=== PATIENT | female | born 1950 | race Caucasian/White ===

== ENCOUNTER 2022-01-26 11:26 | Inpatient (IN) ==
[2022-01-26] MEDS ORDERED: Famotidine 20 MG TABLET PO PRN (18:35)
[2022-01-26] MEDS ORDERED: Bismuth Subsalicylate 120 ML ORAL SUSPENSION PO PRN (18:35)
[2022-01-26] MEDS ORDERED: *HR* Dextrose 50 % in Water (Syg) 50 ML SYRINGE IVP PRN (18:44)
[2022-01-26] MEDS ORDERED: D5% in Water 1,000 ML IVC PRN (18:44)
[2022-01-26] MEDS ORDERED: Dextrose Gel 15 GM/37.5 ML TUBE PO PRN ×2 (18:44)
[2022-01-26] MEDS ORDERED: (Diclofenac Sodium [Voltaren] 100 GM Gel..Gram.) TP PRN (21:00)
[2022-01-26] MEDS ORDERED: NON-FORMULARY MEDICATION 1 EACH EACH (Insulin Detemir [Levemir Flextouch] 100 UNIT/ML Insu SQ SCH (21:00)
[2022-01-26] MEDS: Gabapentin 300 MG CAPSULE PO SCH (21:08)
[2022-01-26] MEDS: Lactobacillus 1 EACH CAP.SPRINK PO SCH (21:08)
[2022-01-26] MEDS: rOPINIRole 1 MG TABLET PO SCH (21:09)
[2022-01-26] MEDS: Insulin LISPRO 300 UNITS/3 ML VIAL SUBQ SCH (21:09)
[2022-01-26] MEDS: Insulin DETEMIR 100 UNIT/ML per UNIT SUBQ SCH (22:07)
[2022-01-27 07:32] LABS: BUN/Creatinine Ratio 27 (6-26); Basophils # 0.1 K/mcL (0.0-0.2); Basophils % 0.8 %; Blood Urea Nitrogen 15 mg/dL (8-23); Calcium 9.3 mg/dL (8.6-10.3); Carbon Dioxide 25 mEq/L (23-29); Chloride 101 mEq/L (98-107); Eosinophils % 0.1 %; Glucose 95 mg/dL (70-105); Hematocrit 33.8 % (35.3-44.9); Hemoglobin 10.8 g/dL (11.5-15.4); Immature Granulocytes % 0.4 % (0-4); Lymphocytes # 2.7 K/mcL (0.6-4.6); Lymphocytes % 23.7 %; Mean Corpuscular Volume 81.4 fL (83.0-100.0); Monocytes # 0.9 K/mcL (0.0-1.3); Monocytes % 8.1 %; Neutrophils # 7.6 K/mcL (1.6-8.9); Osmolality,Calculated 281 (280-300); Platelet Count 434 K/mcL (140-400); Potassium 3.7 mEq/L (3.5-5.1); Red Blood Count 4.15 M/mcL (3.82-4.97); Red Cell Distribution Width 16.9 % (11.5-14.5); Segmented Neutrophils % 66.9 %; Sodium 135 mEq/L (136-145); White Blood Count 11.3 K/mcL (4.3-11.1)
[2022-01-27] MEDS: Insulin LISPRO 300 UNITS/3 ML VIAL SUBQ SCH ×4 (08:30→19:59)
[2022-01-27] MEDS: Aspirin Enteric Coated 81 MG Tablet PO SCH (09:52)
[2022-01-27] MEDS: FLUoxetine 20 MG CAPSULE PO SCH (09:52)
[2022-01-27] MEDS: lisinopriL 20 MG TABLET PO SCH (09:52)
[2022-01-27] MEDS: BuPROPion XL (24 HR) 150 MG TABLET PO SCH (09:52)
[2022-01-27] MEDS: amLODIPine 5 MG TABLET PO SCH (09:52)
[2022-01-27] MEDS: *HR* SitaGLIPtin 25 MG TABLET PO SCH (09:52)
[2022-01-27] MEDS: Gabapentin 300 MG CAPSULE PO SCH ×3 (09:52→22:05)
[2022-01-27] MEDS: Lactobacillus 1 EACH CAP.SPRINK PO SCH ×2 (09:52→22:05)
[2022-01-27] MEDS: *HR* HYDROcodone/Acet 10/325 mg TABLET PO PRN (10:07)
[2022-01-27] MEDS ORDERED: 0.9 % Sodium Chloride 500 ML IVC ONE (21:02)
[2022-01-27] MEDS: Insulin DETEMIR 100 UNIT/ML per UNIT SUBQ SCH (22:05)
[2022-01-27] MEDS: rOPINIRole 1 MG TABLET PO SCH (22:05)
[2022-01-28] MEDS ORDERED: 0.9 % Sodium Chloride 500 ML IV ONE (01:33)
[2022-01-28] MEDS: *HR* Enoxaparin 40 MG/0.4 ML SYRINGE SQ SCH (05:42)
[2022-01-28] MEDS: Insulin LISPRO 300 UNITS/3 ML VIAL SUBQ SCH ×4 (07:23→21:32)
[2022-01-28] MEDS: Aspirin Enteric Coated 81 MG Tablet PO SCH (09:40)
[2022-01-28] MEDS: Lactobacillus 1 EACH CAP.SPRINK PO SCH ×2 (09:40→22:45)
[2022-01-28] MEDS: *HR* SitaGLIPtin 25 MG TABLET PO SCH (09:40)
[2022-01-28] MEDS: BuPROPion XL (24 HR) 150 MG TABLET PO SCH (09:40)
[2022-01-28] MEDS: lisinopriL 20 MG TABLET PO SCH (09:41)
[2022-01-28] MEDS: FLUoxetine 20 MG CAPSULE PO SCH (09:41)
[2022-01-28] MEDS: Gabapentin 300 MG CAPSULE PO SCH ×3 (09:41→22:39)
[2022-01-28] MEDS: amLODIPine 5 MG TABLET PO SCH (09:41)
[2022-01-28] MEDS: Acetaminophen 325 MG TABLET PO PRN (13:25)
[2022-01-28] MEDS ORDERED: Ringers Solution, Lactated 1,000 ML IVC SCH (22:00)
[2022-01-28 22:16] LABS: Basophils # 0.1 K/mcL (0.0-0.2); Basophils % 0.5 %; Eosinophils % 0.3 %; Hematocrit 30.6 % (35.3-44.9); Hemoglobin 9.5 g/dL (11.5-15.4); Immature Granulocytes % 0.3 % (0-4); Lymphocytes # 3.4 K/mcL (0.6-4.6); Lymphocytes % 26.8 %; Mean Corpuscular Volume 83.8 fL (83.0-100.0); Mean Platelet Volume 9.8 fL (9.4-12.4); Monocytes # 0.9 K/mcL (0.0-1.3); Monocytes % 6.7 %; Neutrophils # 8.4 K/mcL (1.6-8.9); Platelet Count 403 K/mcL (140-400); Red Blood Count 3.65 M/mcL (3.82-4.97); Red Cell Distribution Width 17.5 % (11.5-14.5); Segmented Neutrophils % 65.4 %; White Blood Count 12.8 K/mcL (4.3-11.1)
[2022-01-28 22:25] LABS: Albumin 2.9 g/dL (3.5-5.7); Bilirubin,Total 0.2 mg/dL (0.3-1.0); Calcium 8.5 mg/dL (8.6-10.3); Potassium 4.1 mEq/L (3.5-5.1); Total Protein 5.9 g/dL (6.4-8.9)
[2022-01-28] MEDS: rOPINIRole 1 MG TABLET PO SCH (22:45)
[2022-01-29] MEDS: *HR* Enoxaparin 40 MG/0.4 ML SYRINGE SQ SCH (06:27)
[2022-01-29] MEDS: Insulin LISPRO 300 UNITS/3 ML VIAL SUBQ SCH ×4 (07:45→20:54)
[2022-01-29] MEDS: FLUoxetine 20 MG CAPSULE PO SCH (09:51)
[2022-01-29] MEDS: Aspirin Enteric Coated 81 MG Tablet PO SCH (09:51)
[2022-01-29] MEDS: BuPROPion XL (24 HR) 150 MG TABLET PO SCH (09:51)
[2022-01-29] MEDS: Gabapentin 300 MG CAPSULE PO SCH ×3 (09:51→20:52)
[2022-01-29] MEDS: *HR* SitaGLIPtin 25 MG TABLET PO SCH (09:51)
[2022-01-29] MEDS: Lactobacillus 1 EACH CAP.SPRINK PO SCH ×2 (09:52→20:52)
[2022-01-29] MEDS: 0.9 % Sodium Chloride 1,000 ML IVC SCH (13:09)
[2022-01-29 16:00] LABS: Bilirubin,Urine Negative (Negative); Blood,Urine Negative (Negative); Clarity,Urine Slightly Cloudy (Clear); Color,Urine Yellow (Yellow); Glucose,Urine (UA) Normal (Normal); Ketones,Urine Negative (Negative); Leukocyte Esterase,Urine Moderate (Negative); Nitrite,Urine Negative (Negative); PH,Urine 5.5 pH Units (5.0-8.0); Protein,Urine Negative (Neg-Trace); Specific Gravity,Urine 1.025 (1.010-1.025); Urobilinogen,Urine Normal (Normal)
[2022-01-29 16:27] LABS: Budding Yeast,Urine Moderate per hpf (None Seen); Squamous Epithelial Cell,Urine Few per hpf (None-Few); Waxy Casts,Urine Few per lpf (None Seen)
[2022-01-29 16:28] LABS: Bacteria,Urine Moderate per hpf (None-Few)
[2022-01-29] MEDS: Acetaminophen 325 MG TABLET PO PRN (20:52)
[2022-01-29] MEDS: rOPINIRole 1 MG TABLET PO SCH (20:53)
[2022-01-29] MEDS: Budesonide/Formoterol 160/4.5 1 PUFF INH IH SCH (20:58)
[2022-01-30] MEDS: Insulin DETEMIR 100 UNIT/ML X5UNITS SUBQ SCH ×2 (00:45→21:27)
[2022-01-30] MEDS: *HR* Enoxaparin 40 MG/0.4 ML SYRINGE SQ SCH (05:20)
[2022-01-30] MEDS: 0.9 % Sodium Chloride 1,000 ML IVC SCH (07:00)
[2022-01-30] MEDS: Insulin LISPRO 300 UNITS/3 ML VIAL SUBQ SCH ×4 (07:27→21:00)
[2022-01-30] MEDS: Budesonide/Formoterol 160/4.5 1 PUFF INH IH SCH ×2 (09:33→21:18)
[2022-01-30] MEDS: BuPROPion XL (24 HR) 150 MG TABLET PO SCH (10:36)
[2022-01-30] MEDS: *HR* SitaGLIPtin 25 MG TABLET PO SCH (10:37)
[2022-01-30] MEDS: FLUoxetine 20 MG CAPSULE PO SCH (10:37)
[2022-01-30] MEDS: Aspirin Enteric Coated 81 MG Tablet PO SCH (10:37)
[2022-01-30] MEDS: Lactobacillus 1 EACH CAP.SPRINK PO SCH ×2 (10:37→21:27)
[2022-01-30] MEDS: Gabapentin 300 MG CAPSULE PO SCH ×3 (10:40→21:27)
[2022-01-30 10:42] LABS: Basophils # 0.1 K/mcL (0.0-0.2); Basophils % 0.5 %; Eosinophils % 0.2 %; Hemoglobin 9.1 g/dL (11.5-15.4); Immature Granulocytes % 0.3 % (0-4); Lymphocytes # 1.5 K/mcL (0.6-4.6); Lymphocytes % 14.4 %; Mean Corpuscular HGB Conc 31.4 g/dL (31.6-35.5); Mean Corpuscular Hemoglobin 26.3 pg (28.0-33.3); Mean Corpuscular Volume 83.8 fL (83.0-100.0); Monocytes # 0.5 K/mcL (0.0-1.3); Monocytes % 4.7 %; Neutrophils # 8.5 K/mcL (1.6-8.9); Platelet Count 409 K/mcL (140-400); Red Blood Count 3.46 M/mcL (3.82-4.97); Red Cell Distribution Width 17.6 % (11.5-14.5); Segmented Neutrophils % 79.9 %; White Blood Count 10.7 K/mcL (4.3-11.1)
[2022-01-30 10:57] LABS: BUN/Creatinine Ratio 27 (6-26); Blood Urea Nitrogen 18 mg/dL (8-23); Calcium 8.7 mg/dL (8.6-10.3); Carbon Dioxide 25 mEq/L (23-29); Chloride 106 mEq/L (98-107); Glucose 151 mg/dL (70-105); Osmolality,Calculated 289 (280-300); Potassium 4.5 mEq/L (3.5-5.1); Sodium 137 mEq/L (136-145)
[2022-01-30] MEDS: Acetaminophen 325 MG TABLET PO PRN (21:26)
[2022-01-30] MEDS: rOPINIRole 1 MG TABLET PO SCH (21:26)
[2022-01-31] MEDS: *HR* Enoxaparin 40 MG/0.4 ML SYRINGE SQ SCH (06:09)
[2022-01-31] MEDS: Insulin LISPRO 300 UNITS/3 ML VIAL SUBQ SCH ×4 (07:11→21:45)
[2022-01-31] MEDS: Budesonide/Formoterol 160/4.5 1 PUFF INH IH SCH ×2 (09:13→20:06)
[2022-01-31] MEDS: Lactobacillus 1 EACH CAP.SPRINK PO SCH ×2 (10:19→21:45)
[2022-01-31] MEDS: *HR* SitaGLIPtin 25 MG TABLET PO SCH (10:19)
[2022-01-31] MEDS: Aspirin Enteric Coated 81 MG Tablet PO SCH (10:19)
[2022-01-31] MEDS: Gabapentin 300 MG CAPSULE PO SCH ×3 (10:19→21:45)
[2022-01-31] MEDS: FLUoxetine 20 MG CAPSULE PO SCH (10:20)
[2022-01-31] MEDS: BuPROPion XL (24 HR) 150 MG TABLET PO SCH (10:20)
[2022-01-31] MEDS: Insulin DETEMIR 100 UNIT/ML X5UNITS SUBQ SCH (21:45)
[2022-01-31] MEDS: rOPINIRole 1 MG TABLET PO SCH (21:45)
[2022-02-01] MEDS: *HR* Enoxaparin 40 MG/0.4 ML SYRINGE SQ SCH (06:00)
[2022-02-01] MEDS: Insulin LISPRO 300 UNITS/3 ML VIAL SUBQ SCH ×4 (07:43→20:53)
[2022-02-01] MEDS: BuPROPion XL (24 HR) 150 MG TABLET PO SCH (09:08)
[2022-02-01] MEDS: *HR* SitaGLIPtin 25 MG TABLET PO SCH (09:08)
[2022-02-01] MEDS: Aspirin Enteric Coated 81 MG Tablet PO SCH (09:08)
[2022-02-01] MEDS: FLUoxetine 20 MG CAPSULE PO SCH (09:08)
[2022-02-01] MEDS: Lactobacillus 1 EACH CAP.SPRINK PO SCH ×2 (09:09→20:53)
[2022-02-01] MEDS: Gabapentin 300 MG CAPSULE PO SCH ×3 (09:09→20:53)
[2022-02-01] MEDS: Budesonide/Formoterol 160/4.5 1 PUFF INH IH SCH ×2 (11:34→21:29)
[2022-02-01] MEDS: rOPINIRole 1 MG TABLET PO SCH (20:53)
[2022-02-01] MEDS: Insulin DETEMIR 100 UNIT/ML X5UNITS SUBQ SCH (20:53)
[2022-02-02] MEDS: *HR* Enoxaparin 40 MG/0.4 ML SYRINGE SQ SCH (05:42)
[2022-02-02] MEDS: Aspirin Enteric Coated 81 MG Tablet PO SCH (08:42)
[2022-02-02] MEDS: BuPROPion XL (24 HR) 150 MG TABLET PO SCH (08:42)
[2022-02-02] MEDS: *HR* SitaGLIPtin 25 MG TABLET PO SCH (08:42)
[2022-02-02] MEDS: FLUoxetine 20 MG CAPSULE PO SCH (08:42)
[2022-02-02] MEDS: Insulin LISPRO 300 UNITS/3 ML VIAL SUBQ SCH ×4 (08:42→20:34)
[2022-02-02] MEDS: Gabapentin 300 MG CAPSULE PO SCH ×3 (08:42→20:35)
[2022-02-02] MEDS: Lactobacillus 1 EACH CAP.SPRINK PO SCH ×2 (08:42→20:34)
[2022-02-02] MEDS: Budesonide/Formoterol 160/4.5 1 PUFF INH IH SCH ×2 (10:45→22:15)
[2022-02-02] MEDS: rOPINIRole 1 MG TABLET PO SCH (20:34)
[2022-02-02] MEDS: Insulin DETEMIR 100 UNIT/ML X5UNITS SUBQ SCH (20:34)
[2022-02-03] MEDS: *HR* Enoxaparin 40 MG/0.4 ML SYRINGE SQ SCH (05:34)
[2022-02-03 06:22] LABS: Basophils # 0.1 K/mcL (0.0-0.2); Basophils % 0.6 %; Eosinophils % 0.1 %; Hematocrit 29.5 % (35.3-44.9); Hemoglobin 9.1 g/dL (11.5-15.4); Immature Granulocytes % 0.2 % (0-4); Lymphocytes # 2.4 K/mcL (0.6-4.6); Lymphocytes % 23.2 %; Mean Corpuscular HGB Conc 30.8 g/dL (31.6-35.5); Mean Corpuscular Volume 84.3 fL (83.0-100.0); Mean Platelet Volume 10.1 fL (9.4-12.4); Monocytes # 0.6 K/mcL (0.0-1.3); Monocytes % 6.2 %; Platelet Count 477 K/mcL (140-400); Red Cell Distribution Width 18.3 % (11.5-14.5); Segmented Neutrophils % 69.7 %; White Blood Count 10.1 K/mcL (4.3-11.1)
[2022-02-03 06:50] LABS: BUN/Creatinine Ratio 23 (6-26); Blood Urea Nitrogen 13 mg/dL (8-23); Carbon Dioxide 28 mEq/L (23-29); Chloride 102 mEq/L (98-107); Glucose 110 mg/dL (70-105); Magnesium 1.1 mg/dL (1.6-2.6); Osmolality,Calculated 287 (280-300); Potassium 4.1 mEq/L (3.5-5.1); Sodium 138 mEq/L (136-145)
[2022-02-03] MEDS: Lactobacillus 1 EACH CAP.SPRINK PO SCH ×2 (09:35→20:38)
[2022-02-03] MEDS: Aspirin Enteric Coated 81 MG Tablet PO SCH (09:35)
[2022-02-03] MEDS: FLUoxetine 20 MG CAPSULE PO SCH (09:35)
[2022-02-03] MEDS: BuPROPion XL (24 HR) 150 MG TABLET PO SCH (09:35)
[2022-02-03] MEDS: Gabapentin 300 MG CAPSULE PO SCH ×3 (09:36→20:39)
[2022-02-03] MEDS: Insulin LISPRO 300 UNITS/3 ML VIAL SUBQ SCH ×4 (09:36→20:39)
[2022-02-03] MEDS: *HR* SitaGLIPtin 25 MG TABLET PO SCH (09:36)
[2022-02-03] MEDS: Budesonide/Formoterol 160/4.5 1 PUFF INH IH SCH ×2 (10:00→21:31)
[2022-02-03] MEDS: Insulin DETEMIR 100 UNIT/ML X5UNITS SUBQ SCH (20:39)
[2022-02-03] MEDS: rOPINIRole 1 MG TABLET PO SCH (20:39)
[2022-02-04] MEDS: *HR* Enoxaparin 40 MG/0.4 ML SYRINGE SQ SCH (04:37)
[2022-02-04] MEDS: Insulin LISPRO 300 UNITS/3 ML VIAL SUBQ SCH ×4 (08:08→20:47)
[2022-02-04] MEDS: BuPROPion XL (24 HR) 150 MG TABLET PO SCH (08:23)
[2022-02-04] MEDS: Lactobacillus 1 EACH CAP.SPRINK PO SCH ×2 (08:23→20:47)
[2022-02-04] MEDS: *HR* SitaGLIPtin 25 MG TABLET PO SCH (08:23)
[2022-02-04] MEDS: Gabapentin 300 MG CAPSULE PO SCH ×3 (08:23→20:47)
[2022-02-04] MEDS: Aspirin Enteric Coated 81 MG Tablet PO SCH (08:23)
[2022-02-04] MEDS: FLUoxetine 20 MG CAPSULE PO SCH (08:23)
[2022-02-04] MEDS: Budesonide/Formoterol 160/4.5 1 PUFF INH IH SCH ×2 (09:16→21:03)
[2022-02-04] MEDS: Ondansetron ODT 4 MG TAB.RAPDIS SL PRN (17:51)
[2022-02-04] MEDS: rOPINIRole 1 MG TABLET PO SCH (20:47)
[2022-02-04] MEDS: Insulin DETEMIR 100 UNIT/ML X5UNITS SUBQ SCH (20:47)
[2022-02-05] MEDS: *HR* Enoxaparin 40 MG/0.4 ML SYRINGE SQ SCH (05:07)
[2022-02-05] MEDS: *HR* SitaGLIPtin 25 MG TABLET PO SCH (09:01)
[2022-02-05] MEDS: FLUoxetine 20 MG CAPSULE PO SCH (09:01)
[2022-02-05] MEDS: Gabapentin 300 MG CAPSULE PO SCH ×3 (09:01→20:38)
[2022-02-05] MEDS: Aspirin Enteric Coated 81 MG Tablet PO SCH (09:01)
[2022-02-05] MEDS: BuPROPion XL (24 HR) 150 MG TABLET PO SCH (09:01)
[2022-02-05] MEDS: Lactobacillus 1 EACH CAP.SPRINK PO SCH ×2 (09:01→20:38)
[2022-02-05] MEDS: Insulin LISPRO 300 UNITS/3 ML VIAL SUBQ SCH ×4 (09:01→20:41)
[2022-02-05] MEDS: Budesonide/Formoterol 160/4.5 1 PUFF INH IH SCH ×2 (09:09→20:48)
[2022-02-05] MEDS: rOPINIRole 1 MG TABLET PO SCH (20:38)
[2022-02-05] MEDS: Insulin DETEMIR 100 UNIT/ML X5UNITS SUBQ SCH (20:39)
[2022-02-06] MEDS: *HR* Enoxaparin 40 MG/0.4 ML SYRINGE SQ SCH (06:51)
[2022-02-06] MEDS: Insulin LISPRO 300 UNITS/3 ML VIAL SUBQ SCH ×4 (08:41→20:22)
[2022-02-06] MEDS: Lactobacillus 1 EACH CAP.SPRINK PO SCH ×2 (08:45→20:22)
[2022-02-06] MEDS: BuPROPion XL (24 HR) 150 MG TABLET PO SCH (08:45)
[2022-02-06] MEDS: Aspirin Enteric Coated 81 MG Tablet PO SCH (08:45)
[2022-02-06] MEDS: Gabapentin 300 MG CAPSULE PO SCH ×3 (08:45→20:22)
[2022-02-06] MEDS: FLUoxetine 20 MG CAPSULE PO SCH (08:45)
[2022-02-06] MEDS: *HR* SitaGLIPtin 25 MG TABLET PO SCH (08:45)
[2022-02-06] MEDS: Budesonide/Formoterol 160/4.5 1 PUFF INH IH SCH ×2 (09:07→22:00)
[2022-02-06] MEDS: Methyl Salicylate/Menthol 85 APPL/85 GM TUBE TP SCH ×2 (17:15→20:22)
[2022-02-06] MEDS: rOPINIRole 1 MG TABLET PO SCH (20:21)
[2022-02-06] MEDS: Insulin DETEMIR 100 UNIT/ML X5UNITS SUBQ SCH (20:21)
[2022-02-07] MEDS: *HR* Enoxaparin 40 MG/0.4 ML SYRINGE SQ SCH (05:23)
[2022-02-07] MEDS: Budesonide/Formoterol 160/4.5 1 PUFF INH IH SCH ×2 (07:26→21:49)
[2022-02-07] MEDS: Gabapentin 300 MG CAPSULE PO SCH ×3 (09:56→22:02)
[2022-02-07] MEDS: Methyl Salicylate/Menthol 85 APPL/85 GM TUBE TP SCH ×2 (09:56→22:01)
[2022-02-07] MEDS: Insulin LISPRO 300 UNITS/3 ML VIAL SUBQ SCH ×4 (09:56→20:56)
[2022-02-07] MEDS: FLUoxetine 20 MG CAPSULE PO SCH (09:57)
[2022-02-07] MEDS: *HR* SitaGLIPtin 25 MG TABLET PO SCH (09:57)
[2022-02-07] MEDS: Aspirin Enteric Coated 81 MG Tablet PO SCH (09:57)
[2022-02-07] MEDS: BuPROPion XL (24 HR) 150 MG TABLET PO SCH (09:57)
[2022-02-07] MEDS: Lactobacillus 1 EACH CAP.SPRINK PO SCH ×2 (09:57→22:02)
[2022-02-07] MEDS: Insulin DETEMIR 100 UNIT/ML X5UNITS SUBQ SCH (22:01)
[2022-02-07] MEDS: *HR* HYDROcodone/Acet 10/325 mg TABLET PO PRN (22:01)
[2022-02-07] MEDS: rOPINIRole 1 MG TABLET PO SCH (22:02)
[2022-02-08] MEDS: *HR* Enoxaparin 40 MG/0.4 ML SYRINGE SQ SCH (06:37)
[2022-02-08] MEDS: Insulin LISPRO 300 UNITS/3 ML VIAL SUBQ SCH ×4 (07:32→20:39)
[2022-02-08] MEDS: FLUoxetine 20 MG CAPSULE PO SCH (07:56)
[2022-02-08] MEDS: Lactobacillus 1 EACH CAP.SPRINK PO SCH ×2 (07:56→20:26)
[2022-02-08] MEDS: Aspirin Enteric Coated 81 MG Tablet PO SCH (07:57)
[2022-02-08] MEDS: BuPROPion XL (24 HR) 150 MG TABLET PO SCH (07:57)
[2022-02-08] MEDS: *HR* SitaGLIPtin 25 MG TABLET PO SCH (07:57)
[2022-02-08] MEDS: Acetaminophen 325 MG TABLET PO PRN ×2 (07:57→20:35)
[2022-02-08] MEDS: Gabapentin 300 MG CAPSULE PO SCH ×3 (07:57→20:27)
[2022-02-08 08:07] LABS: Hematocrit 30.1 % (35.3-44.9); Hemoglobin 9.5 g/dL (11.5-15.4); Mean Corpuscular HGB Conc 31.6 g/dL (31.6-35.5); Mean Corpuscular Hemoglobin 27.1 pg (28.0-33.3); Mean Corpuscular Volume 85.8 fL (83.0-100.0); Mean Platelet Volume 9.4 fL (9.4-12.4); Platelet Count 506 K/mcL (140-400); Red Blood Count 3.51 M/mcL (3.82-4.97); Red Cell Distribution Width 19.3 % (11.5-14.5); White Blood Count 11.6 K/mcL (4.3-11.1)
[2022-02-08] MEDS: Methyl Salicylate/Menthol 85 APPL/85 GM TUBE TP SCH ×2 (08:10→20:28)
[2022-02-08] MEDS: Budesonide/Formoterol 160/4.5 1 PUFF INH IH SCH ×2 (08:49→20:36)
[2022-02-08 11:58] LABS: BUN/Creatinine Ratio 25 (6-26); Blood Urea Nitrogen 16 mg/dL (8-23); Calcium 8.7 mg/dL (8.6-10.3); Carbon Dioxide 30 mEq/L (23-29); Chloride 102 mEq/L (98-107); Glucose 104 mg/dL (70-105); Osmolality,Calculated 285 (280-300); Potassium 4.3 mEq/L (3.5-5.1); Sodium 137 mEq/L (136-145)
[2022-02-08] MEDS: rOPINIRole 1 MG TABLET PO SCH (20:26)
[2022-02-08] MEDS: Insulin DETEMIR 100 UNIT/ML X5UNITS SUBQ SCH (20:39)
[2022-02-09] MEDS: *HR* Enoxaparin 40 MG/0.4 ML SYRINGE SQ SCH (05:41)
[2022-02-09] MEDS: Insulin LISPRO 300 UNITS/3 ML VIAL SUBQ SCH ×4 (07:37→20:19)
[2022-02-09] MEDS: Aspirin Enteric Coated 81 MG Tablet PO SCH (07:56)
[2022-02-09] MEDS: Lactobacillus 1 EACH CAP.SPRINK PO SCH ×2 (07:56→20:18)
[2022-02-09] MEDS: BuPROPion XL (24 HR) 150 MG TABLET PO SCH (07:56)
[2022-02-09] MEDS: Methyl Salicylate/Menthol 85 APPL/85 GM TUBE TP SCH ×2 (07:56→20:20)
[2022-02-09] MEDS: FLUoxetine 20 MG CAPSULE PO SCH (07:56)
[2022-02-09] MEDS: Gabapentin 300 MG CAPSULE PO SCH ×3 (07:56→20:18)
[2022-02-09] MEDS: *HR* SitaGLIPtin 25 MG TABLET PO SCH (07:56)
[2022-02-09] MEDS: Budesonide/Formoterol 160/4.5 1 PUFF INH IH SCH ×2 (08:47→20:22)
[2022-02-09] MEDS: Acetaminophen 325 MG TABLET PO PRN (14:47)
[2022-02-09] MEDS: *HR* HYDROcodone/Acet 10/325 mg TABLET PO PRN (15:51)
[2022-02-09] MEDS: Insulin DETEMIR 100 UNIT/ML X5UNITS SUBQ SCH (20:18)
[2022-02-09] MEDS: rOPINIRole 1 MG TABLET PO SCH (20:18)
[2022-02-10] MEDS: *HR* Enoxaparin 40 MG/0.4 ML SYRINGE SQ SCH (06:32)
[2022-02-10] MEDS: Budesonide/Formoterol 160/4.5 1 PUFF INH IH SCH ×2 (07:40→21:22)
[2022-02-10] MEDS: BuPROPion XL (24 HR) 150 MG TABLET PO SCH (07:59)
[2022-02-10] MEDS: Lactobacillus 1 EACH CAP.SPRINK PO SCH ×2 (07:59→22:28)
[2022-02-10] MEDS: FLUoxetine 20 MG CAPSULE PO SCH (07:59)
[2022-02-10] MEDS: Gabapentin 300 MG CAPSULE PO SCH ×3 (07:59→22:27)
[2022-02-10] MEDS: Aspirin Enteric Coated 81 MG Tablet PO SCH (07:59)
[2022-02-10] MEDS: Insulin LISPRO 300 UNITS/3 ML VIAL SUBQ SCH ×4 (07:59→22:29)
[2022-02-10] MEDS: *HR* SitaGLIPtin 25 MG TABLET PO SCH (08:00)
[2022-02-10] MEDS: Methyl Salicylate/Menthol 85 APPL/85 GM TUBE TP SCH ×2 (08:01→23:57)
[2022-02-10] MEDS: rOPINIRole 1 MG TABLET PO SCH (22:28)
[2022-02-10] MEDS: Insulin DETEMIR 100 UNIT/ML X5UNITS SUBQ SCH (22:29)
[2022-02-11] MEDS: *HR* Enoxaparin 40 MG/0.4 ML SYRINGE SQ SCH (05:54)
[2022-02-11] MEDS: Ondansetron ODT 4 MG TAB.RAPDIS SL PRN (05:55)
[2022-02-11] MEDS: BuPROPion XL (24 HR) 150 MG TABLET PO SCH (07:23)
[2022-02-11] MEDS: Aspirin Enteric Coated 81 MG Tablet PO SCH (07:23)
[2022-02-11] MEDS: Gabapentin 300 MG CAPSULE PO SCH ×3 (07:23→21:43)
[2022-02-11] MEDS: Lactobacillus 1 EACH CAP.SPRINK PO SCH ×2 (07:23→21:41)
[2022-02-11] MEDS: Methyl Salicylate/Menthol 85 APPL/85 GM TUBE TP SCH ×2 (07:23→21:43)
[2022-02-11] MEDS: FLUoxetine 20 MG CAPSULE PO SCH (07:23)
[2022-02-11] MEDS: *HR* SitaGLIPtin 25 MG TABLET PO SCH (07:23)
[2022-02-11] MEDS: Budesonide/Formoterol 160/4.5 1 PUFF INH IH SCH ×2 (07:48→20:20)
[2022-02-11] MEDS: Insulin LISPRO 300 UNITS/3 ML VIAL SUBQ SCH ×4 (08:26→21:43)
[2022-02-11] MEDS: rOPINIRole 1 MG TABLET PO SCH (21:42)
[2022-02-11] MEDS: Insulin DETEMIR 100 UNIT/ML X5UNITS SUBQ SCH (21:43)
[2022-02-12] MEDS: *HR* Enoxaparin 40 MG/0.4 ML SYRINGE SQ SCH (05:52)
[2022-02-12] MEDS: Insulin LISPRO 300 UNITS/3 ML VIAL SUBQ SCH ×4 (07:13→20:45)
[2022-02-12 07:59] LABS: Hematocrit 30.7 % (35.3-44.9); Hemoglobin 9.6 g/dL (11.5-15.4); Mean Corpuscular HGB Conc 31.3 g/dL (31.6-35.5); Mean Corpuscular Volume 86.2 fL (83.0-100.0); Mean Platelet Volume 9.6 fL (9.4-12.4); Platelet Count 450 K/mcL (140-400); Red Blood Count 3.56 M/mcL (3.82-4.97); Red Cell Distribution Width 19.8 % (11.5-14.5)
[2022-02-12 08:07] LABS: BUN/Creatinine Ratio 34 (6-26); Blood Urea Nitrogen 21 mg/dL (8-23); Calcium 8.8 mg/dL (8.6-10.3); Carbon Dioxide 28 mEq/L (23-29); Chloride 102 mEq/L (98-107); Glucose 101 mg/dL (70-105); Osmolality,Calculated 287 (280-300); Potassium 4.3 mEq/L (3.5-5.1); Sodium 137 mEq/L (136-145)
[2022-02-12] MEDS: Budesonide/Formoterol 160/4.5 1 PUFF INH IH SCH ×2 (08:08→22:26)
[2022-02-12] MEDS: Aspirin Enteric Coated 81 MG Tablet PO SCH (10:03)
[2022-02-12] MEDS: *HR* SitaGLIPtin 25 MG TABLET PO SCH (10:03)
[2022-02-12] MEDS: BuPROPion XL (24 HR) 150 MG TABLET PO SCH (10:03)
[2022-02-12] MEDS: FLUoxetine 20 MG CAPSULE PO SCH (10:04)
[2022-02-12] MEDS: Gabapentin 300 MG CAPSULE PO SCH ×3 (10:04→21:17)
[2022-02-12] MEDS: Lactobacillus 1 EACH CAP.SPRINK PO SCH ×2 (10:04→21:17)
[2022-02-12] MEDS: Methyl Salicylate/Menthol 85 APPL/85 GM TUBE TP SCH ×2 (10:07→21:18)
[2022-02-12] MEDS: Ondansetron ODT 4 MG TAB.RAPDIS SL PRN (11:30)
[2022-02-12] MEDS: *HR* HYDROcodone/Acet 10/325 mg TABLET PO PRN (15:00)
[2022-02-12] MEDS: rOPINIRole 1 MG TABLET PO SCH (21:17)
[2022-02-12] MEDS: Insulin DETEMIR 100 UNIT/ML X5UNITS SUBQ SCH (21:17)
[2022-02-13] MEDS: *HR* Enoxaparin 40 MG/0.4 ML SYRINGE SQ SCH (05:19)
[2022-02-13] MEDS: Insulin LISPRO 300 UNITS/3 ML VIAL SUBQ SCH ×4 (07:36→21:52)
[2022-02-13] MEDS: Budesonide/Formoterol 160/4.5 1 PUFF INH IH SCH ×2 (08:52→22:04)
[2022-02-13] MEDS: FLUoxetine 20 MG CAPSULE PO SCH (09:35)
[2022-02-13] MEDS: Aspirin Enteric Coated 81 MG Tablet PO SCH (09:35)
[2022-02-13] MEDS: Gabapentin 300 MG CAPSULE PO SCH ×3 (09:35→21:52)
[2022-02-13] MEDS: Lactobacillus 1 EACH CAP.SPRINK PO SCH ×2 (09:36→21:52)
[2022-02-13] MEDS: *HR* SitaGLIPtin 25 MG TABLET PO SCH (09:36)
[2022-02-13] MEDS: BuPROPion XL (24 HR) 150 MG TABLET PO SCH (09:36)
[2022-02-13] MEDS: Methyl Salicylate/Menthol 85 APPL/85 GM TUBE TP SCH ×2 (11:15→21:51)
[2022-02-13] MEDS: Insulin DETEMIR 100 UNIT/ML X5UNITS SUBQ SCH (21:52)
[2022-02-13] MEDS: rOPINIRole 1 MG TABLET PO SCH (21:52)
[2022-02-14] MEDS: *HR* Enoxaparin 40 MG/0.4 ML SYRINGE SQ SCH (05:34)
[2022-02-14] MEDS: Insulin LISPRO 300 UNITS/3 ML VIAL SUBQ SCH ×4 (07:49→19:50)
[2022-02-14] MEDS: Aspirin Enteric Coated 81 MG Tablet PO SCH (09:03)
[2022-02-14] MEDS: FLUoxetine 20 MG CAPSULE PO SCH (09:03)
[2022-02-14] MEDS: Gabapentin 300 MG CAPSULE PO SCH ×3 (09:03→19:50)
[2022-02-14] MEDS: Lactobacillus 1 EACH CAP.SPRINK PO SCH ×2 (09:03→19:50)
[2022-02-14] MEDS: BuPROPion XL (24 HR) 150 MG TABLET PO SCH (09:03)
[2022-02-14] MEDS: Methyl Salicylate/Menthol 85 APPL/85 GM TUBE TP SCH ×2 (09:04→19:50)
[2022-02-14] MEDS: Budesonide/Formoterol 160/4.5 1 PUFF INH IH SCH ×2 (09:06→21:03)
[2022-02-14] MEDS: rOPINIRole 1 MG TABLET PO SCH (19:50)
[2022-02-14] MEDS: Insulin DETEMIR 100 UNIT/ML X5UNITS SUBQ SCH (19:50)
[2022-02-15] MEDS: *HR* Enoxaparin 40 MG/0.4 ML SYRINGE SQ SCH (05:44)
[2022-02-15] MEDS: Budesonide/Formoterol 160/4.5 1 PUFF INH IH SCH ×2 (08:55→20:54)
[2022-02-15] MEDS: FLUoxetine 20 MG CAPSULE PO SCH (09:14)
[2022-02-15] MEDS: Gabapentin 300 MG CAPSULE PO SCH ×3 (09:14→21:17)
[2022-02-15] MEDS: Lactobacillus 1 EACH CAP.SPRINK PO SCH ×2 (09:14→21:17)
[2022-02-15] MEDS: BuPROPion XL (24 HR) 150 MG TABLET PO SCH (09:14)
[2022-02-15] MEDS: Aspirin Enteric Coated 81 MG Tablet PO SCH (09:14)
[2022-02-15] MEDS: Methyl Salicylate/Menthol 85 APPL/85 GM TUBE TP SCH ×2 (09:15→21:17)
[2022-02-15] MEDS: Insulin LISPRO 300 UNITS/3 ML VIAL SUBQ SCH ×4 (09:15→21:17)
[2022-02-15] MEDS: rOPINIRole 1 MG TABLET PO SCH (21:17)
[2022-02-15] MEDS: Insulin DETEMIR 100 UNIT/ML X5UNITS SUBQ SCH (21:17)
[2022-02-16] MEDS: *HR* Enoxaparin 40 MG/0.4 ML SYRINGE SQ SCH (05:49)
[2022-02-16] MEDS: Budesonide/Formoterol 160/4.5 1 PUFF INH IH SCH ×2 (07:44→21:07)
[2022-02-16] MEDS: Insulin LISPRO 300 UNITS/3 ML VIAL SUBQ SCH ×4 (08:07→20:32)
[2022-02-16] MEDS: FLUoxetine 20 MG CAPSULE PO SCH (08:48)
[2022-02-16] MEDS: BuPROPion XL (24 HR) 150 MG TABLET PO SCH (08:48)
[2022-02-16] MEDS: Lactobacillus 1 EACH CAP.SPRINK PO SCH ×2 (08:48→20:32)
[2022-02-16] MEDS: Aspirin Enteric Coated 81 MG Tablet PO SCH (08:49)
[2022-02-16] MEDS: Gabapentin 300 MG CAPSULE PO SCH ×3 (08:49→20:31)
[2022-02-16] MEDS: Methyl Salicylate/Menthol 85 APPL/85 GM TUBE TP SCH ×2 (08:49→20:34)
[2022-02-16] MEDS: *HR* HYDROcodone/Acet 10/325 mg TABLET PO PRN (12:05)
[2022-02-16] MEDS: rOPINIRole 1 MG TABLET PO SCH (20:32)
[2022-02-17] MEDS: *HR* Enoxaparin 40 MG/0.4 ML SYRINGE SQ SCH (05:07)
[2022-02-17] MEDS: Budesonide/Formoterol 160/4.5 1 PUFF INH IH SCH ×2 (07:32→21:45)
[2022-02-17] MEDS: Insulin LISPRO 300 UNITS/3 ML VIAL SUBQ SCH ×4 (07:48→22:24)
[2022-02-17] MEDS: Lactobacillus 1 EACH CAP.SPRINK PO SCH ×2 (08:30→22:23)
[2022-02-17] MEDS: Gabapentin 300 MG CAPSULE PO SCH ×3 (08:30→22:23)
[2022-02-17] MEDS: BuPROPion XL (24 HR) 150 MG TABLET PO SCH (08:30)
[2022-02-17] MEDS: Aspirin Enteric Coated 81 MG Tablet PO SCH (08:30)
[2022-02-17] MEDS: FLUoxetine 20 MG CAPSULE PO SCH (08:30)
[2022-02-17] MEDS: Methyl Salicylate/Menthol 85 APPL/85 GM TUBE TP SCH ×2 (08:33→22:22)
[2022-02-17] MEDS: *HR* HYDROcodone/Acet 10/325 mg TABLET PO PRN (22:23)
[2022-02-17] MEDS: rOPINIRole 1 MG TABLET PO SCH (22:24)
[2022-02-18] MEDS: *HR* Enoxaparin 40 MG/0.4 ML SYRINGE SQ SCH (06:20)
[2022-02-18] MEDS: Budesonide/Formoterol 160/4.5 1 PUFF INH IH SCH ×2 (08:27→21:40)
[2022-02-18] MEDS: Insulin LISPRO 300 UNITS/3 ML VIAL SUBQ SCH ×4 (08:46→20:15)
[2022-02-18] MEDS: Gabapentin 300 MG CAPSULE PO SCH ×3 (08:46→20:15)
[2022-02-18] MEDS: BuPROPion XL (24 HR) 150 MG TABLET PO SCH (08:46)
[2022-02-18] MEDS: Aspirin Enteric Coated 81 MG Tablet PO SCH (08:46)
[2022-02-18] MEDS: FLUoxetine 20 MG CAPSULE PO SCH (08:46)
[2022-02-18] MEDS: Lactobacillus 1 EACH CAP.SPRINK PO SCH ×2 (08:46→20:15)
[2022-02-18] MEDS: Methyl Salicylate/Menthol 85 APPL/85 GM TUBE TP SCH ×2 (08:47→20:25)
[2022-02-18] MEDS: rOPINIRole 1 MG TABLET PO SCH (20:15)
[2022-02-19] MEDS: *HR* Enoxaparin 40 MG/0.4 ML SYRINGE SQ SCH (05:06)
[2022-02-19] MEDS: Insulin LISPRO 300 UNITS/3 ML VIAL SUBQ SCH ×4 (07:34→20:27)
[2022-02-19] MEDS: Budesonide/Formoterol 160/4.5 1 PUFF INH IH SCH ×2 (08:05→20:33)
[2022-02-19 08:59] LABS: Basophils # 0.1 K/mcL (0.0-0.2); Basophils % 0.5 %; Hematocrit 33.5 % (35.3-44.9); Hemoglobin 10.4 g/dL (11.5-15.4); Immature Granulocytes % 0.2 % (0-4); Lymphocytes # 2.1 K/mcL (0.6-4.6); Lymphocytes % 22.5 %; Mean Corpuscular Hemoglobin 27.2 pg (28.0-33.3); Mean Corpuscular Volume 87.7 fL (83.0-100.0); Mean Platelet Volume 9.5 fL (9.4-12.4); Monocytes # 0.6 K/mcL (0.0-1.3); Monocytes % 6.1 %; Neutrophils # 6.7 K/mcL (1.6-8.9); Platelet Count 404 K/mcL (140-400); Red Blood Count 3.82 M/mcL (3.82-4.97); Red Cell Distribution Width 19.9 % (11.5-14.5); Segmented Neutrophils % 70.7 %; White Blood Count 9.5 K/mcL (4.3-11.1)
[2022-02-19 09:16] LABS: BUN/Creatinine Ratio 29 (6-26); Blood Urea Nitrogen 18 mg/dL (8-23); Calcium 9.1 mg/dL (8.6-10.3); Carbon Dioxide 29 mEq/L (23-29); Chloride 102 mEq/L (98-107); Glucose 127 mg/dL (70-105); Osmolality,Calculated 287 (280-300); Potassium 4.4 mEq/L (3.5-5.1); Sodium 137 mEq/L (136-145)
[2022-02-19] MEDS: FLUoxetine 20 MG CAPSULE PO SCH (10:14)
[2022-02-19] MEDS: BuPROPion XL (24 HR) 150 MG TABLET PO SCH (10:15)
[2022-02-19] MEDS: Acetaminophen 325 MG TABLET PO PRN ×2 (10:15→20:25)
[2022-02-19] MEDS: Lactobacillus 1 EACH CAP.SPRINK PO SCH ×2 (10:15→20:26)
[2022-02-19] MEDS: Aspirin Enteric Coated 81 MG Tablet PO SCH (10:15)
[2022-02-19] MEDS: Gabapentin 300 MG CAPSULE PO SCH ×3 (10:15→20:26)
[2022-02-19] MEDS: Methyl Salicylate/Menthol 85 APPL/85 GM TUBE TP SCH ×2 (10:17→20:24)
[2022-02-19] MEDS: rOPINIRole 1 MG TABLET PO SCH (20:26)
[2022-02-20] MEDS: *HR* Enoxaparin 40 MG/0.4 ML SYRINGE SQ SCH (05:24)
[2022-02-20] MEDS: Insulin LISPRO 300 UNITS/3 ML VIAL SUBQ SCH ×4 (07:16→19:39)
[2022-02-20] MEDS: Lactobacillus 1 EACH CAP.SPRINK PO SCH ×2 (07:48→20:06)
[2022-02-20] MEDS: FLUoxetine 20 MG CAPSULE PO SCH (07:48)
[2022-02-20] MEDS: Gabapentin 300 MG CAPSULE PO SCH ×3 (07:49→20:06)
[2022-02-20] MEDS: Aspirin Enteric Coated 81 MG Tablet PO SCH (07:49)
[2022-02-20] MEDS: Methyl Salicylate/Menthol 85 APPL/85 GM TUBE TP SCH ×2 (07:49→20:05)
[2022-02-20] MEDS: BuPROPion XL (24 HR) 150 MG TABLET PO SCH (07:49)
[2022-02-20] MEDS: Budesonide/Formoterol 160/4.5 1 PUFF INH IH SCH ×2 (08:42→21:20)
[2022-02-20] MEDS: rOPINIRole 1 MG TABLET PO SCH (20:06)
[2022-02-21] MEDS: *HR* Enoxaparin 40 MG/0.4 ML SYRINGE SQ SCH (06:24)
[2022-02-21] MEDS: Aspirin Enteric Coated 81 MG Tablet PO SCH (08:21)
[2022-02-21] MEDS: Lactobacillus 1 EACH CAP.SPRINK PO SCH ×2 (08:21→19:40)
[2022-02-21] MEDS: FLUoxetine 20 MG CAPSULE PO SCH (08:21)
[2022-02-21] MEDS: BuPROPion XL (24 HR) 150 MG TABLET PO SCH (08:21)
[2022-02-21] MEDS: Gabapentin 300 MG CAPSULE PO SCH ×3 (08:22→19:40)
[2022-02-21] MEDS: Insulin LISPRO 300 UNITS/3 ML VIAL SUBQ SCH ×4 (08:22→19:40)
[2022-02-21] MEDS: Budesonide/Formoterol 160/4.5 1 PUFF INH IH SCH ×2 (08:40→21:03)
[2022-02-21] MEDS: Methyl Salicylate/Menthol 85 APPL/85 GM TUBE TP SCH ×2 (09:20→19:40)
[2022-02-21] MEDS: amLODIPine 5 MG TABLET PO SCH (18:19)
[2022-02-21] MEDS: rOPINIRole 1 MG TABLET PO SCH (19:40)
[2022-02-22] MEDS: *HR* Enoxaparin 40 MG/0.4 ML SYRINGE SQ SCH (05:28)
[2022-02-22] MEDS: Budesonide/Formoterol 160/4.5 1 PUFF INH IH SCH ×2 (08:45→20:21)
[2022-02-22] MEDS: Insulin LISPRO 300 UNITS/3 ML VIAL SUBQ SCH ×4 (09:58→21:19)
[2022-02-22] MEDS: BuPROPion XL (24 HR) 150 MG TABLET PO SCH (10:00)
[2022-02-22] MEDS: Aspirin Enteric Coated 81 MG Tablet PO SCH (10:00)
[2022-02-22] MEDS: Gabapentin 300 MG CAPSULE PO SCH ×3 (10:00→21:16)
[2022-02-22] MEDS: amLODIPine 5 MG TABLET PO SCH (10:00)
[2022-02-22] MEDS: Lactobacillus 1 EACH CAP.SPRINK PO SCH ×2 (10:00→21:16)
[2022-02-22] MEDS: FLUoxetine 20 MG CAPSULE PO SCH (10:00)
[2022-02-22] MEDS: Methyl Salicylate/Menthol 85 APPL/85 GM TUBE TP SCH ×2 (10:01→21:15)
[2022-02-22] MEDS: rOPINIRole 1 MG TABLET PO SCH (21:16)
[2022-02-22 21:21] VITALS: O2SAT 96
[2022-02-23] MEDS: *HR* HYDROcodone/Acet 10/325 mg TABLET PO PRN (02:01)
[2022-02-23] MEDS: *HR* Enoxaparin 40 MG/0.4 ML SYRINGE SQ SCH (05:17)
[2022-02-23 07:48] VITALS: BP 134/60; PULSE 73; RESP 16; TEMP 98
[2022-02-23] MEDS: Budesonide/Formoterol 160/4.5 1 PUFF INH IH SCH (09:09)
[2022-02-23] MEDS: BuPROPion XL (24 HR) 150 MG TABLET PO SCH (09:20)
[2022-02-23] MEDS: Lactobacillus 1 EACH CAP.SPRINK PO SCH (09:20)
[2022-02-23] MEDS: Aspirin Enteric Coated 81 MG Tablet PO SCH (09:20)
[2022-02-23] MEDS: Gabapentin 300 MG CAPSULE PO SCH ×2 (09:20→13:42)
[2022-02-23] MEDS: amLODIPine 5 MG TABLET PO SCH (09:21)
[2022-02-23] MEDS: FLUoxetine 20 MG CAPSULE PO SCH (09:21)
[2022-02-23] MEDS: Methyl Salicylate/Menthol 85 APPL/85 GM TUBE TP SCH (09:21)
[2022-02-23] MEDS: Insulin LISPRO 300 UNITS/3 ML VIAL SUBQ SCH ×3 (09:25→17:27)
[2022-02-23] MEDS: Acetaminophen 325 MG TABLET PO PRN (09:25)
[2022-02-23 17:45] LABS: Influenza A PCR Negative (Negative); Influenza B PCR Negative (Negative); Resp. Syncytial Virus PCR Negative (Negative)
[2022-02-23 18:02] LABS: SARS-CoV-2 by PCR (In House) Negative (Negative)
== END 2022-02-23 18:40 | DRG 689 ==
LOC: INPPIK 19:33 → SUATTDRO 19:33
PROVIDERS: ADMIT Family Medicine; ATTEND Nurse Practitioner